=== PATIENT | female | born 1980 | race Caucasian/White ===

== ENCOUNTER → 2017-08-28 08:32 | Outpatient (CLI) | payer MEDICAID ==
[~2017-08-28 08:32] MED LIST: DURICEF500 MG PO; HYDROCODON-ACE1 EAC7 PO; LAMISIL250 MG PO; MULTI-DAY VITAM1 TAB PO
[2017-09-09 06:41] VITALS: BMI 37.1
== END | disposition home or self-care (01) ==
LOC: D.MRI 08-26 13:00
DX: M67.432 Ganglion, left wrist (principal)

== ENCOUNTER 2017-09-09 05:09 | Day surgery (SDC) | payer MEDICAID ==
[~2017-09-09] VITALS: Ht 154.9 cm; Wt 88.9 kg
[~2017-09-09 05:09] MED LIST changes: -DURICEF500 MG PO; -HYDROCODON-ACE1 EAC7 PO
[2017-09-09 06:31] LABS: HEMATOCRIT 38.3 % (36.0-48.0); HEMOGLOBIN 12.8 g/dL (12-16); MCH 27.6 pg (26.0-34.0); MCHC 33.4 g/dL (31.0-37.0); MCV 82.7 fL (80.0-100.0); MEAN PLATELET VOLUME 10.3 fL (7.4-10.4); RBC 4.63 10x6/uL (4.00-5.40); RDW 12.9 % (11.5-14.5); WBC 6.1 10x3/uL (4.8-10.8)
[2017-09-09 06:37] LABS: CALCIUM 8.7 mg/dL (8.5-10.1); CARBON DIOXIDE 27.1 mmol/L (21.0-32.0); POTASSIUM - SERUM 4.1 mmol/L (3.5-5.1)
[2017-09-09 06:41] VITALS: BP 138/87; Ht 154.9 cm; Wt 88.9 kg
[2017-09-09 06:59] LABS: HCG URINE NEGATIVE (NEGATIVE)
[2017-09-09] MEDS ORDERED: DURICEF500 MG PO (08:12)
[2017-09-09] MEDS ORDERED: HYDROCODON-ACE1 EAC7 PO (08:12)
--- NOTE | 2017-09-09 10:05 | NUR ---
IV DC WITH CATHER TIP INTACT
--- NOTE | 2017-09-09 10:38 | NUR ---
VOMTING , ORDER ZOFRAN ODT , WET COOL TOWEL TO FOREHEAD
--- NOTE | 2017-09-09 10:44 | OP ---
PATIENT NAME: PANCHO GRAY MEDICAL RECORD: [id number] :76 LOCATION:[facility] ADMISSION DATE: SURGEON: BOB CASPER DO DATE OF OPERATION: 09/09/2017 PROCEDURE PERFORMED: Left dorsal wrist ganglion excision. PREOPERATIVE DIAGNOSIS: Left wrist dorsal ganglion. POSTOPERATIVE DIAGNOSIS: Left wrist dorsal ganglion. INDICATIONS: Ms. Gray is a 37-year-old female who has had this dorsal wrist ganglion for quite some time. She has tried nonoperative means to treat it and it has been causing her pain and discomfort with her activities of daily living. I saw her in the office and we got an MRI to ensure that indeed was a ganglion off the MRI. It did appear to be a ganglion cyst. After reviewing this with her and going over the risks and benefits of procedure, she decided she wanted it removed and she was informed of all the risks and benefits of the procedure and she was scheduled for surgery. DESCRIPTION OF PROCEDURE: The patient was taken to the operative suite, laid in supine position, given 2 grams of Ancef preoperatively. Once this was done, the left arm was prepped and draped in sterile fashion. A tourniquet was placed above the elbow prior to draping. Once this prepped and draped, a timeout was performed, everyone was in agreement as to correct side, site and patient. An incision was then marked out over the dorsal wrist over the ganglion and a 15 blade was used to incise the skin and then scissors were used to dissect down to the ganglion itself. Once this was encountered, the cyst was mobilized and the stalk was seen to come off the wrist capsule. First, the left upper extremity was exsanguinated with an Esmarch prior to incision and tourniquet was inflated to 250 mmHg. The tourniquet was up for 20 minutes total during the procedure. After the dissection was made of the cyst, the cyst was removed and a bipolar was used to cauterize the wrist capsule where the cyst stalk came out of, as well as other parts of wrist capsule and then tourniquet was let down and all bleeders were coagulated with the bipolar. After this was done, the wound was irrigated and tourniquet was let down at 20 minutes. Blood loss was minimal and the wound was closed with a 5-0 Monocryl in inverted interrupted fashion. Steri-Strips were placed over the wound. Racheal 4 x4s, Kerlix, and Coban was lightly wrapped over that for the dressing. The patient was awakened and taken to recovery room in stable condition. TRANSINT:[id number] Voice Confirmation ID: [id number] DOCUMENT ID: [id number] BOB CASPER DO at 1044 CC: [id number] DICTATION DATE: 09/09/17816 MATRIX SUPERVISOR: 09/09/17 1043 [address] [place] [address]
--- NOTE | 2017-09-09 11:10 | NUR ---
FEELING BETTER, PT AND FAMILY WANTS TO TALK WITH DR CASPER,
--- NOTE | 2017-09-09 11:33 | NUR ---
DR CASPER IN ROOM TALKING WITH PATIENT AND FAMILY
== END 2017-09-09 11:35 | disposition home or self-care (01) ==
LOC: D.OPS 05:09 → D.PAN 07:30 → D.OPS 07:30
PROVIDERS: Anesthesiology; Orthopaedic Surgery
DX: M67.432 Ganglion, left wrist (principal); E11.9 Type 2 diabetes mellitus without complications; Z01.812 Encounter for preprocedural laboratory examination